=== PATIENT | male | born 1975 | race Caucasian/White ===

== ENCOUNTER → 2016-05-22 | Outpatient (CLI) | payer BC ==
[~2016-05-22] VITALS: Ht 182.9 cm; Wt 103.4 kg
[~2016-05-22] MED LIST: ANTIVERT25 MG PO; CALCIUM500 M4 PO; CALTRATE 600600 MG PO; CELEBREX200 MG; CELEBREX200 MG PO; DURAGESIC50 MCG TD; FENTANYL1 EAC1 TD; FENTANYL1 EAC5 TD; GRALISE600 MG PO; LEXAPRO10 MG PO; MAGNESIUM OXID200 MG PO; MAGNESIUM200 MG PO; METHOCARBAMOL500 MG PO; METOCLOPRAMIDE10 MG PO; MOTRIN800 MG PO; NEXIUM40 MG PO; NORCO 7.5/321 TABLET PO; OXYMORPHONE HCL10 M1 PO; POTASSIUM GLUCO2 MEQ PO; PROCTOSOL-HC28.35 GM RC; ROPINIROLE HCL1 MG PO; STOOL SOFTENER1 EAC2 PO; VICODIN 5-3001 EACH PO
== END | disposition home or self-care (01) ==
LOC: AMB 13:30
DX: R63.4 Abnormal weight loss (principal); D12.2 Benign neoplasm of ascending colon; D12.3 Benign neoplasm of transverse colon; D12.4 Benign neoplasm of descending colon; R10.13 Epigastric pain; K21.9 Gastro-esophageal reflux disease without esophagitis; F41.8 Other specified anxiety disorders; M79.7 Fibromyalgia; R63.0 Anorexia
CPT/HCPCS: 88305; B4087; J2250

== ENCOUNTER → 2016-09-22 | Outpatient (CLI) | payer BC, OTHER ==
[~2016-09-22] VITALS: Ht 182.9 cm; Wt 103.0 kg
[2016-09-22 07:10] VITALS: BP 105/78
== END | disposition home or self-care (01) ==
LOC: IVINF 06:58
PROVIDERS: Internal Medicine
DX: E27.40 Unspecified adrenocortical insufficiency (principal)
CPT/HCPCS: 80400; 82024 90; 82533 91; 96374; J0834

== ENCOUNTER → 2016-10-08 | Outpatient (CLI) | payer BC ==
[~2016-10-08] VITALS: Ht 182.9 cm; Wt 104.3 kg
== END | disposition home or self-care (01) ==
LOC: AMB 07:05
DX: K29.70 Gastritis, unspecified, without bleeding (principal); K31.89 Other diseases of stomach and duodenum; D12.2 Benign neoplasm of ascending colon; K21.9 Gastro-esophageal reflux disease without esophagitis; R11.10 Vomiting, unspecified; Z86.010 Personal history of colon polyps
CPT/HCPCS: 88305; 88342 TC

== ENCOUNTER 2017-12-30 21:28 | Emergency (ER) | payer BC ==
[~2017-12-30] VITALS: Ht 185.4 cm; Wt 121.7 kg
[2017-12-30] MEDS ORDERED: PREDNISONE20 MG PO (22:16)
[2017-12-30] MEDS ORDERED: KEFLEX500 MG PO (22:16)
[2017-12-30 22:42] VITALS: BP 128/79
== END 2017-12-30 22:43 | disposition home or self-care (01) ==
LOC: RME 21:28 → EME 21:28 → RME 22:43
DX: L30.9 Dermatitis, unspecified (principal); L03.115 Cellulitis of right lower limb; F32.9 Major depressive disorder, single episode, unspecified; F41.9 Anxiety disorder, unspecified; G25.81 Restless legs syndrome
CPT/HCPCS: 99281; 99283; J7512